=== PATIENT | female | born 1990 | race Two or more races ===

== ENCOUNTER 2020-11-26 15:28 | Emergency (ER) | payer SELFPAY ==
[~2020-11-26] VITALS: Ht 167.6 cm; Wt 59.0 kg
[2020-11-26 16:06] VITALS: BP 86/48
== END 2020-11-26 17:04 | disposition home or self-care (01) ==
LOC: ER 15:28
DX: I95.9 Hypotension, unspecified (principal); Z53.21 Procedure and treatment not carried out due to patient leaving prior to being seen by health care provider
CPT/HCPCS: 93005